=== PATIENT | male | born 1995 ===

== ENCOUNTER 2025-08-21 14:48 | Outpatient (REF) | payer MEDICAID, SELFPAY ==
[2025-08-21 16:40] LABS: Abs Immature Grans 0.04 10^3/uL (0.0-0.06); HCT 44.0 % (40.0-50.0); HGB 15.0 g/dL (13.5-17.5); Immature Grans % 0.6 %; MCH 30.2 pg (27.0-33.0); MCHC 34.1 % (32.0-36.0); MCV 89 fL (80-95); MPV 10.1 fL (8.0-11.0); Platelet Count 230 10^3/uL (130-400); RBC 4.96 10^6/uL (4.36-5.78); RDW 12.0 % (11.8-14.1); RDW-SD 38.8 fL; WBC 6.47 10^3/uL (4.4-10.8)
[2025-08-21 16:52] LABS: TSH (W/Ref FT4) 0.92 uIU/mL (0.55-4.78)
[2025-08-24 11:53] LABS: Complement, Total 58 U/mL (30-75)
== END 2025-08-21 14:49 | disposition home or self-care (01) ==
LOC: NCHCN 14:48
PROVIDERS: PCP Family Medicine; Visit Provider Physician Assistant Surgical
DX: R05.3 Chronic cough (principal)
CPT/HCPCS: 82784; 82785; 84443; 85025; 86162